=== PATIENT | female | born 1995 | race Caucasian/White ===

== ENCOUNTER 2018-01-04 22:17 | Emergency (ER) | payer SELFPAY ==
[~2018-01-04] VITALS: Ht 160 cm; Wt 73.0 kg
[2018-01-05] MEDS ORDERED: ACETAMINOPHEN 325MG TABLET PO ONE (00:15)
[2018-01-05] MEDS ORDERED: IBUPROFEN 400MG TABLET PO ONE (00:15)
[2018-01-05 00:59] VITALS: BP 123/66
== END 2018-01-05 02:27 | disposition home or self-care (01) ==
LOC: ER 22:17
DX: M25.512 Pain in left shoulder (principal); V49.3XXA Car occupant (driver) (passenger) injured in unspecified nontraffic accident, initial encounter; Y93.89 Activity, other specified; Y92.410 Unspecified street and highway as the place of occurrence of the external cause; Y99.8 Other external cause status
CPT/HCPCS: 73030; 81025; 99283; 99284; A4565